=== PATIENT | female | born 1975 | race Caucasian/White ===

== ENCOUNTER 2019-10-12 08:12 | Emergency (ER) | payer OTHER, MEDICAID, SELFPAY ==
[2019-10-12 08:15] VITALS: BP 1156/87; PULSE 68; RESP 24; TEMP 36.6; O2SAT 100
[2019-10-12] MEDS: MORPHINE 4 MG/ML INJ IM (08:20)
--- NOTE | 2019-10-12 08:21 | DI.CT.S_ITS ---
PROCEDURE: CT ABDOMEN PELVIS WO CON INDICATIONS: flank pain, stone study TECHNIQUE: Noncontrast 5 mm thick sections acquired from the diaphragms to the symphysis. 5 mm thick coronal and sagittal reformats were then performed. For radiation dose reduction, the following was used: automated exposure control, adjustment of mA and/or kV according to patient size. COMPARISON: [facility], CT, KIDNEY/ URETER/BLADDER, 08/19/2015, 10:04. FINDINGS: Image quality: Excellent. Lung bases: Lung bases are clear. Heart size is normal. Urinary system: Both kidneys are normal in size. No kidney stones or on the left but there is a punctate 1-2 mm calculus within the upper third collecting system of the right kidney, nonobstructive. No right-sided hydronephrosis or perinephric fat stranding but there is mild hydronephrosis and slight perinephric edema on the left. The right ureter appears non-dilated throughout its expected course of, but there is a mild degree of left ureteral dilatation almost to the bladder level where a 1 x 2 mm calculus can be seen within the far distal left ureter, seen on series 2 image 80.. Bladder wall thickness is normal; no calcified bladder stones. Other solid organs: Liver is normal in size. Gallbladder has been previously resected. Pancreas is normal in contours. Spleen is normal in size. No adrenal nodules. Peritoneum and bowel: Unenhanced bowel loops demonstrate normal wall thickness and caliber. No free fluid or air. Nodes and vessels: No retroperitoneal or mesenteric adenopathy by size criteria. Aorta and inferior vena cava are normal in caliber. Abdominal wall: No ventral hernias. Pelvis: No free pelvic fluid. No inguinal hernias or adenopathy. Centrally positioned IUD. Bones: No suspicious bony lesions. No vertebral body compression fractures. IMPRESSION: 2 mm maximal dimension far distal left ureteral stone causing mild hydronephrosis and hydroureter on the left. Punctate nonobstructive 1-2 mm calculus is noted within the upper third collecting system of the right kidney. IUD in normal position, prior cholecystectomy. Dictated by: Jeremias Puentes M.D. on 10/12/2019 at 9:42 Approved by: Jeremias Puentes M.D. on 10/12/2019 at 9:46
--- NOTE | 2019-10-12 08:27 | ED.ABDPAIN ---
HPI - Abdominal Pain General Chief Complaint: Urogenital-Female Stated Complaint: unknown Time Seen by Provider: 10/12/19 08:19 History of Present Illness HPI narrative: cc: severe left flank pain. H/O kidney stones HPI: The patient is a 44-year-old female at the present time is very hysterical and uncooperative thrashing about complaining of severe pain in her left lower flank radiating straight through to her back. The patient has difficult time providing history. The patient's son provided most of the information. The patient woke up around 7:00 a.m. was complaining of abdominal pain which became progressively worse localizing to the left side with severe pain 10/10. She started retching and gagging. Her son states that she is a diabetic but does not know whether not she has hypertension. She is a former smoker periodically drinks alcohol and periodically uses marijuana. Related Data Previous Rx's Medication Instructions Recorded ondansetron 4 mg PO Q6H PRN #12 tab 10/12/19 oxycodone-acetaminophen [Percocet] 1 tab PO Q6H PRN #12 tab 10/12/19 tamsulosin 0.4 mg PO DAILY #7 cap 10/12/19 Allergies Allergy/AdvReac Type Severity Reaction Status Date / Time No Known Drug Allergies Allergy Verified 10/12/19 08:47 Review of Systems Review of Systems Narrative: REVIEW OF SYSTEMS: CONSTITUTIONAL: No fever but has had chills and sweats. NEUROLOGICAL: Denies any headache EENT: Has had no sore throat or difficulty in swallowing. CARDIO-PULMONARY: Denies any chest pain cough or shortness of breath GASTROINTESTINAL: Severe left lower abdominal pain and flank pain radiating to her back with intense retching and vomiting. GENITAL URINARY: No dysuria MUSCULOSKELETAL/ RHEUMATOLOGICAL: Left posterior back pain and flank pain. c/o of severe pain in the left posterior flank. This is identical to my previous kidney stones Patient History Social History Smoking Status: Never smoker Exam Narrative Exam Narrative: PHYSICAL EXAM: CONSTITUTIONAL: Awake,Hysterical, yelling and screaming acutely anxious, agitated writhing and retching continuously. The patient is extremely uncomfortable. She is shaking making the exam difficult and is uncooperative. HEAD: AT/NC EENT: PERRL, FROM of eyes, no discharge, no nystagmus MOUTH:Oral mucosa is moist and pink, NECK: Supple, no obvious JVD, Trachea is midline without stridor, no palpable LN. THORAX: No deformity, retractions, chest wall tenderness. Mildly tender left CVA tenderness. LUNGS: Clear, symmetrical breath sounds without respiratory distress. HEART: Normal heart tones, regular rhythm tachycardic without murmur. ABDOMEN: Soft, non-tender, normal bowel sounds without guarding, rebound, rigidity or palpable mass. EXTREMITIES: No edema, deformity, tenderness or cyanosis. SKIN: No rash, bruising, petechiae or purpura. Blotchy brawny discoloration of her face NEURO: Awake, agitated, cranial nerves II-XII are symmetrical , moves all 4 extremities . Initial Vital Signs Initial Vital Signs: Vital Signs Temperature 97.9 F 10/12/19 08:15 Pulse Rate 68 10/12/19 08:15 Respiratory Rate 24 10/12/19 08:15 Blood Pressure 1156/87 H 10/12/19 08:15 Pulse Oximetry 100 10/12/19 08:15 Course Course Course Narrative: 1039: CT scan of the patient's abdomen reveals a 2 mm maximal dimension far distal left ureteral stone causing mild hydronephrosis and hydroureter on the left. Punctate nonobstructing 1-2 mm calculus is noted within the upper 3rd collecting system of the right kidney. IUD in normal position prior cholecystectomy. Orders Ordered: Discontinued Medications Diphenhydramine HCl (Benadryl) 50 mg IV NOW ONE Stop: 10/12/19 08:28 Last Admin: 10/12/19 08:40 Dose: 50 mg Documented by: ALEIDA Sodium Chloride (Normal Saline 0.9%) 1,000 mls @ 1,000 mls/hr IV BOLUS ONE Stop: 10/12/19 09:28 Last Infusion: 10/12/19 11:54 Dose: 0 mls/hr Documented by: Admin: 10/12/19 08:49 Dose: 500 mls/hr Documented by: ALEIDA Ketorolac Tromethamine (Toradol) 30 mg IV NOW ONE Stop: 10/12/19 08:30 Last Admin: 10/12/19 08:40 Dose: 30 mg Documented by: ALEIDA Morphine Sulfate (Morphine) 4 mg IV NOW ONE Stop: 10/12/19 08:20 Last Admin: 10/12/19 08:44 Dose: 4 mg Documented by: ALEIDA Morphine Sulfate (Morphine) 4 mg IM NOW ONE Stop: 10/12/19 08:30 Last Admin: 10/12/19 08:20 Dose: 4 mg Documented by: ALEIDA Morphine Sulfate (Morphine) 2 mg IV NOW ONE Stop: 10/12/19 08:59 Last Admin: 10/12/19 09:06 Dose: 2 mg Documented by: ALEIDA Morphine Sulfate (Morphine) 4 mg IV NOW ONE Stop: 10/12/19 10:38 Last Admin: 10/12/19 10:48 Dose: 4 mg Documented by: ALEIDA Ondansetron HCl (Zofran) 4 mg IV NOW ONE Stop: 10/12/19 08:20 Last Admin: 10/12/19 08:39 Dose: 4 mg Documented by: ALEIDA Tamsulosin HCl (Flomax) 0.4 mg PO NOW ONE Stop: 10/12/19 10:41 Last Admin: 10/12/19 10:49 Dose: 0.4 mg Documented by: ALEIDA Vital Signs Vital signs: Vital Signs - 8 hr 10/12/19 08:15 10/12/19 10:10 Temperature 97.9 F Pulse Rate 68 67 Respiratory Rate 24 19 Blood Pressure 1156/87 H Blood Pressure [Right Arm] 157/84 H Pulse Oximetry 100 100 MDM - Abdominal Pain Lab Data Result diagrams: 10/12/19 08:35 10/12/19 08:35 Labs: Lab Results 10/12/19 10/12/19 10/12/19 Range/Units 08:35 08:35 10:00 WBC 7.3 (4.5-11.0) X10^3/uL RBC 4.18 (4.0-5.2) X10^6/uL Hgb 13.7 (12.0-16.0) g/dL Hct 39.1 (36-46) % MCV 93.7 (80-100) fL MCH 32.8 (26-34) PG MCHC 35.0 (30-36) % RDW 14.7 (11.6-14.8) % Plt Count 283 (150-400) X10^3/uL Neut % (Auto) 55.2 (50-75) % Lymph % (Auto) 33.0 (25-40) % [place] % (Auto) 8.5 (3-14) % Eos % (Auto) 2.2 (2-4) % Baso % (Auto) 1.1 (0-2) % Neut # (Auto) 4000 (3445-8801) /uL Lymph # (Auto) 2400 (8821-0416) /uL [place] # (Auto) 600 (0-900) /uL Eos # (Auto) 200 (0-450) /uL Baso # (Auto) 100 (0-100) /uL Sodium 141 (137-145) mmol/L Potassium 3.6 (3.4-5.1) mmol/L Chloride 110 H (98-107) mmol/L Carbon Dioxide 22 (22-32) mmol/L BUN 15 (7-17) mg/dL Creatinine 0.68 (0.52-1.04) mg/dL Estimated GFR > 60.0 (>60) mL/min BUN/Creatinine Ratio 22.1 H (6-22) Glucose 176 H (70-100) mg/dL Lactate 1.9 (0.7-2.1) mmol/L Calcium 8.9 (8.4-10.2) mg/dL Total Bilirubin 0.3 (0.2-1.3) mg/dL AST 29 (14-36) IU/L ALT 23 (<35) IU/L Alkaline Phosphatase 98 (38-126) U/L Total Protein 7.5 (6.3-8.2) g/dL Albumin 4.4 (3.5-5.0) g/dL Globulin 3.1 (1.7-4.1) g/dL Albumin/Globulin Ratio 1.4 (1.0-2.8) Lipase 146 (23-300) U/L Discharge Plan Departure Patient Disposition: Home Clinical Impression: Acute left flank pain, Ureterolithiasis, Colic, ureteral Discharge Date/Time: 10/12/19 12:58 Instructions: DI for Kidney Stones Activity Restrictions/Additional Instructions: 1. You have a very small 2 mm kidney stone in your right left ureter. There is no significant obstruction of the ureter and you have minimal swelling of the ureter. 2. You need to follow-up with your primary care physician. 3. You can follow up with the urologist here in [place]. Dr. Fitzpatrick 4. Take the Zofran for nausea and vomiting 4 mg, 1-2 tablets every 6 hours as needed 5. Take the Percocet 10/325 every 6 hours as needed for severe pain and discomfort. 6. Take the Flomax 1 tablet every day for the next 7 days. 7. Return to the emergency department if you develop worsening pain that is uncontrolled by the medication fever, uncontrolled vomiting, or you pass out. Prescriptions: New ondansetron 4 mg tablet,disintegrating 4 mg PO Q6H PRN (Reason: nausea and vomiting) Qty: 12 RF: 0 tamsulosin 0.4 mg capsule 0.4 mg PO DAILY Qty: 7 RF: 0 oxycodone-acetaminophen [Percocet] 10-325 mg tablet 1 tab PO Q6H PRN (Reason: pain) Qty: 12 RF: 0 Referrals: Michelle Hinojosa MD [Primary Care Provider] -
[2019-10-12] MEDS: ONDANSETRON 4 MG/2 ML INJ IV (08:39)
[2019-10-12] MEDS: diphenhydrAMINE 50 MG/ML VIAL IV (08:40)
[2019-10-12] MEDS: KETOROLAC 60 MG/2 ML VIAL 30 MG IV (08:40)
[2019-10-12] MEDS: MORPHINE 4 MG/ML INJ IV ×2 (08:44→10:48)
[2019-10-12] MEDS: SODIUM CHLORIDE 0.9% 1,000 ML 500 ML IV (08:49)
[2019-10-12 08:55] LABS: Add Manual Diff / Slide Review NO; Basophils Absolute Auto 100 /uL (0-100); Basophils Percent Auto 1.1 % (0-2); Eosinophils Absolute Auto 200 /uL (0-450); Eosinophils Percent Auto 2.2 % (2-4); Hematocrit 39.1 % (36-46); Hemoglobin 13.7 g/dL (12.0-16.0); Lymphocytes Absolute Auto 2400 /uL (1100-4500); Mean Corpuscular Hemoglobin 32.8 PG (26-34); Mean Corpuscular Volume 93.7 fL (80-100); Monocytes Absolute Auto 600 /uL (0-900); Monocytes Percent Auto 8.5 % (3-14); Neutrophils Absolute Auto 4000 /uL (1500-7000); Neutrophils Percent Auto 55.2 % (50-75); Platelet Count 283 X10^3/uL (150-400); Red Blood Cell Count 4.18 X10^6/uL (4.0-5.2); Red Cell Distribution Width 14.7 % (11.6-14.8); White Blood Cell Count 7.3 X10^3/uL (4.5-11.0)
[2019-10-12 09:03] LABS: Alanine Aminotransferase 23 IU/L (<35); Albumin 4.4 g/dL (3.5-5.0); Albumin Globulin Ratio 1.4 (1.0-2.8); Alkaline Phosphatase 98 U/L (38-126); Aspartate Aminotransferase 29 IU/L (14-36); BUN Creatinine Ratio 22.1 (6-22); Bilirubin Total 0.3 mg/dL (0.2-1.3); Blood Urea Nitrogen 15 mg/dL (7-17); Calcium 8.9 mg/dL (8.4-10.2); Carbon Dioxide 22 mmol/L (22-32); Chloride 110 mmol/L (98-107); Estimated Glomerular Filt Rate > 60.0 mL/min (>60); Globulin 3.1 g/dL (1.7-4.1); Glucose 176 mg/dL (70-100); HEMOLYSIS < 15 (0-50); Lipase 146 U/L (23-300); Potassium 3.6 mmol/L (3.4-5.1); Sodium 141 mmol/L (137-145); Total Protein 7.5 g/dL (6.3-8.2)
[2019-10-12] MEDS: MORPHINE 2 MG/ML INJ IV (09:06)
--- NOTE | 2019-10-12 09:09 | PC.NURSE ---
pt arrived screaming in pain to ER. left flank. Morphine given IM, difficult iv start. Dr. Tovar at bedside.
[2019-10-12 10:10] VITALS: BP 157/84; PULSE 67; RESP 19; O2SAT 100
[2019-10-12 10:23] LABS: Lactate (Lactic Acid) 1.9 mmol/L (0.7-2.1)
[2019-10-12] MEDS: TAMSULOSIN 0.4 MG CAPSULE PO (10:49)
[2019-10-12 12:08] VITALS: BP 144/86; PULSE 76; RESP 16; O2SAT 99
--- NOTE | 2019-10-12 12:52 | PC.NURSE ---
pt was unable to obtain a urine sample prior to discharge.
[2019-10-12 12:54] VITALS: BP 174/79; PULSE 83; RESP 16; O2SAT 99
== END 2019-10-12 12:58 | disposition home or self-care (01) ==
PROVIDERS: Emergency Provider Emergency Medicine; Family Provider Internal Medicine; PCP Internal Medicine
DX: N20.1 Calculus of ureter (principal); N23 Unspecified renal colic; Z87.442 Personal history of urinary calculi; E11.9 Type 2 diabetes mellitus without complications
CPT/HCPCS: 36415; 74176; 80053; 83605; 83690; 85025; 96361; 96372; 96374; 96375; 96376; 99284; J1200; J1885; J2270; J2405

== ENCOUNTER → 2020-05-20 11:38 | Outpatient (CLI) | payer OTHER, MEDICAID, SELFPAY ==
--- NOTE | 2020-05-20 | DI.CT.S_ITS ---
PROCEDURE: CT ABDOMEN PELVIS WO/W CON INDICATIONS: Gross hematuria TECHNIQUE: Optional 5 mm thick noncontrast images acquired from the diaphragm to the symphysis pubis. After the administration of intravenous contrast, 5 mm thick images acquired from the diaphragm to the symphysis pubis after a 10-minute delay. 2 mm thick coronal and sagittal reformats were then performed of the kidneys and ureters. For radiation dose reduction, the following was used: automated exposure control, adjustment of mA and/or kV according to patient size. COMPARISON: None. FINDINGS: Image quality: Excellent. Lung bases: Lung bases are clear. Heart size is normal. Urinary system: Both kidneys are normal in size, without hydronephrosis or nephrolithiasis on pre-contrast images. No perinephric fat stranding. There is mildly asymmetric bilateral renal enhancement, normal on the left and with mild delayed nephrogram on the right. Renal calyces appear normal in morphology when filled with contrast on the left but there is moderate hydronephrosis and hydroureter on the right. Opacified portions of both ureters demonstrate asymmetric caliber, dilated on the right to the level of a impacted 4 by 5 mm distal ureteral stone near the adnexal level at the right hemipelvis. Bladder wall thickness is normal. No calcified bladder stones. Other solid organs: Liver is normal in size and enhancement. Gallbladder has been previously resected. Biliary system is non dilated. Pancreas enhances normally. Spleen is normal in size and enhancement. No adrenal nodules. Peritoneum and bowel: Bowel loops demonstrate normal wall thickness and caliber. No free fluid or air. Nodes and vessels: No retroperitoneal or mesenteric adenopathy by size criteria. Aorta and inferior vena cava are normal in size. Abdominal wall: No ventral hernias. Pelvis: No pathologic free pelvic fluid. No inguinal hernias or adenopathy. Bones: No suspicious bony lesions. No vertebral body compression fractures. IMPRESSION: Prior cholecystectomy. Impacted distal right ureteral calculus measuring approximately 4 by 5 mm in diameter at the right adnexa axial level, producing hydronephrosis and hydroureter above that level, and producing a mild delayed nephrogram appearance at the right kidney when compared to the normal appearing excretion phase of contrast enhancement on the left. Centrally positioned IUD incidentally noted. No bladder abnormality seen. No suspicion for coincidental urothelial or renal cortical neoplasm. Dictated by: Jeremias Puentes M.D. on 05/20/2020 at 13:45 Approved by: Jeremias Puentes M.D. on 05/20/2020 at 13:50
== END ==
PROVIDERS: Family Provider Internal Medicine; PCP Internal Medicine; Referring Provider Urology; Visit Provider Urology
DX: R31.0 Gross hematuria (principal); N13.2 Hydronephrosis with renal and ureteral calculous obstruction; Z90.49 Acquired absence of other specified parts of digestive tract; Z97.5 Presence of (intrauterine) contraceptive device
CPT/HCPCS: 74178; Q9967

== ENCOUNTER 2020-06-08 03:06 | Emergency (ER) | payer OTHER, MEDICAID, SELFPAY ==
[2020-06-08 03:15] VITALS: BP 173/83; PULSE 86; RESP 17; TEMP 37.5; O2SAT 97; BMI 34.7
--- NOTE | 2020-06-08 03:26 | ED_ITS ---
HPI - Abdominal Pain General Chief Complaint: Urogenital-Female Stated Complaint: extreme pain with urinating; surgery yesterday Time Seen by Provider: 06/08/20 03:10 Source: patient and family Mode of arrival: Family Vehicle History of Present Illness HPI narrative: Patient here complains of right flank pain and dysuria with hematuria. Patient status post lithotripsy with right ureteral stent yesterday afternoon at 2:00 p.m. and [facility]. Dr. Arzola Never had ureteral stents in the past. Hurts primarily with urination. complaint: flank pain Location: R flank Related Data Previous Rx's Medication Instructions Recorded ondansetron 4 mg PO Q6H PRN #12 tab 10/12/19 oxycodone-acetaminophen [Percocet] 1 tab PO Q6H PRN #12 tab 10/12/19 tamsulosin 0.4 mg PO DAILY #7 cap 10/12/19 ondansetron 4 mg PO Q8H PRN #10 tab 06/08/20 phenazopyridine [Pyridium] 100 mg PO TID PRN #6 tab 06/08/20 sulfamethoxazole-trimethoprim 1 tab PO BID #14 tab 06/08/20 Allergies Allergy/AdvReac Type Severity Reaction Status Date / Time No Known Drug Allergies Allergy Verified 10/12/19 08:47 Review of Systems Review of Systems Narrative: GENERAL: Denies chills, fatigue, malaise, fever, sweats. HEENT: Denies sinus pain, ear pain, sore throat, difficulty swallowing RESPIRATORY: Denies dyspnea, cough CARDIOVASCULAR: Denies chest pain, palpitations, edema, GASTROINTESTINAL: Denies nausea, vomiting, complains of abdominal pain, denies diarrhea, constipation, melena. : Complains of dysuria, frequency, hematuria MUSCULOSKELETAL: denies muscle or bony pain SKIN: Denies rash, skin lesions NEUROLOGIC: Denies weakness, headache, numbness, change in speech, confusion PSYCHIATRIC: No SI or HI or hallucinations ROS Unobtainable: All systems reviewed & are unremarkable except as noted in HPI and below Patient History Social History Smoking Status: Never smoker Smoking Status: Never smoker alcohol intake frequency: 0-2 drinks per day Substance Use Type: marijuana Exam Narrative Exam Narrative: GENERAL: patient appears stated age. Well-nourished, well- developed patient, in no distress when not urinating, not toxic not dyspneic HEAD: Normocephalic. EYES: Pupils equal round and reactive. No scleral icterus. No injection no discharge CARDIOVASCULAR: Regular rate and rhythm without murmurs, gallops, or rubs. RESPIRATORY: Clear to auscultation. Breath sounds equal bilaterally. No wheezes, rales, or rhonchi. GASTROINTESTINAL: Abdomen soft, , mild right lower quadrant tenderness and right flank tenderness BACK: Nontender without deformity or crepitance. No flank tenderness. NEURO: AOx4. SKIN: Warm and dry PSYCH: Not anxious, is cooperative Initial Vital Signs Initial Vital Signs: Vital Signs Temperature 99.5 F 06/08/20 03:15 Pulse Rate 86 06/08/20 03:15 Respiratory Rate 17 06/08/20 03:15 Blood Pressure 173/83 H 06/08/20 03:15 Pulse Oximetry 97 06/08/20 03:15 Course Course Course Narrative: No new complaints during course of stay. Pain has been controlled. Patient did urinate again here just prior to departure without discomfort. Orders Ordered: ED Orders 06/08/20 03:33 Urine Culture Stat Urine Microscopic Stat 06/08/20 03:35 Complete Blood Count AUTO DIFF Stat Comprehensive Metabolic Panel Stat 06/08/20 03:41 CT kidney ureter bladder (KUB) Stat Discontinued Medications Hydromorphone HCl (Hydromorphone 1 Mg Inj) 1 mg IV NOW ONE Stop: 06/08/20 03:26 Last Admin: 06/08/20 03:38 Dose: 1 mg Documented by: Ketorolac Tromethamine (Ketorolac 60 Mg/2 Ml Vial) 15 mg IV NOW ONE Stop: 06/08/20 05:03 Last Admin: 06/08/20 05:26 Dose: 15 mg Documented by: Ondansetron HCl (Ondansetron 4 Mg/2 Ml Inj) 4 mg IV NOW ONE Stop: 06/08/20 03:26 Last Admin: 06/08/20 03:38 Dose: 4 mg Documented by: Phenazopyridine HCl (Phenazopyridine 100 Mg Tablet) 100 mg PO NOW ONE Stop: 06/08/20 05:03 Last Admin: 06/08/20 05:26 Dose: 100 mg Documented by: Trimethoprim/Sulfamethoxazole (Trimeth/Sulfa 160/800 (Ds) Tablet) 1 tab PO NOW ONE Stop: 06/08/20 05:19 Last Admin: 06/08/20 05:26 Dose: 1 tab Documented by: Reevaluation(s) Reevaluation #1: Reviewed with patient results and discussion with neurologist. Will try Pyridium and 1 dose of Toradol here. Discharge home with prescription for Pyridium. Patient desires trying new medications at home that has been prescribed. Patient still has Percocet at home as well. Time: 05:37 Consultations Consultation #1: Spoke with urologist on-call for patient's provider. Spoke with Dr. Gamez, unable to remove stent on the weekend. Suggest trying pyridium and a dose of Toradol here. Time: 05:05 Vital Signs Vital signs: Vital Signs - 8 hr 06/08/20 03:15 06/08/20 05:45 Temperature 99.5 F Pulse Rate 86 65 Respiratory Rate 17 16 Blood Pressure 173/83 H 140/79 Pulse Oximetry 97 97 MDM - Abdominal Pain Differential Diagnosis Differential diagnosis: Likely calculus of kidney, constipation and small bowel obstruction Medical Records Attestation: I reviewed the patient's medical records. Medical records narrative: Medical records from [facility] faxed Lab Data Attestation: I reviewed the patient's lab results. Result diagrams: 06/08/20 03:35 06/08/20 03:35 Labs: Lab Results 06/08/20 06/08/20 06/08/20 Range/Units 03:33 03:35 03:35 WBC 14.0 H (4.5-11.0) X10^3/uL RBC 4.61 (4.0-5.2) X10^6/uL Hgb 14.7 (12.0-16.0) g/dL Hct 43.0 (36-46) % MCV 93.1 (80-100) fL MCH 31.8 (26-34) PG MCHC 34.1 (30-36) % RDW 13.9 (11.6-14.8) % Plt Count 280 (150-400) X10^3/uL Neut % (Auto) 83.7 H (50-75) % Lymph % (Auto) 11.1 L (25-40) % [place] % (Auto) 4.9 (3-14) % Eos % (Auto) 0.0 L (2-4) % Baso % (Auto) 0.3 (0-2) % Neut # (Auto) 18645 H (4175-3203) /uL Lymph # (Auto) 1600 (0869-2142) /uL [place] # (Auto) 700 (0-900) /uL Eos # (Auto) 0 (0-450) /uL Baso # (Auto) 0 (0-100) /uL Sodium 138 (137-145) mmol/L Potassium 3.9 (3.4-5.1) mmol/L Chloride 103 (98-107) mmol/L Carbon Dioxide 22 (22-32) mmol/L BUN 15 (7-17) mg/dL Creatinine 0.68 (0.52-1.04) mg/dL Estimated GFR > 60.0 (>60) mL/min BUN/Creatinine Ratio 22.1 H (6-22) Glucose 282 H (70-100) mg/dL Calcium 9.5 (8.4-10.2) mg/dL Total Bilirubin 0.8 (0.2-1.3) mg/dL AST 206 H (14-36) IU/L ALT 168 H (<35) IU/L Alkaline Phosphatase 135 H (38-126) U/L Total Protein 8.3 H (6.3-8.2) g/dL Albumin 4.9 (3.5-5.0) g/dL Globulin 3.4 (1.7-4.1) g/dL Albumin/Globulin Ratio 1.4 (1.0-2.8) Urine RBC 30-100/hpf H (0-5/HPF) Urine WBC 0-1/hpf (0-5/HPF) Ur Squamous Epith Cells 1-5 /hpf (0-5/HPF) Urine Bacteria Many (>30) H (None) Ur Culture Indicated? Specimen cultured Point of care testing: Urine Dip Bedside Urine Glucose 1000 mg/dl Bedside Urine Bilirubin - Negative Bedside Urine Ketone +/- 5 Urine Specific [place] 1.030 Bedside Urine Occult Blood +++ Bedside Urine pH 6 Bedside Urine Protein ++ 100 Bedside Urine Urobilinogen - Negative Bedside Urine Nitrite - Negative Bedside Urine Leukocytes + [address] scan - abdomen/pelvis: Radiologist's Impression: Interval placement of right ureteral stent and retrieval of obstructing renal stone with resolution of hydronephrosis. Hepatic steatosis. Stable IUD which may be low laying MDM Narrative Medical decision making narrative: Appropriate for discharge home. Pain is con trolled. Will try adding medications as suggested by urologist. Will add antibiotics as may be early UTI with symptoms of dysuria Discharge Plan Departure Patient Disposition: Home Clinical Impression: Acute flank pain Instructions: DI for Ureteral Stent Placement Activity Restrictions/Additional Instructions: Return if worsening or if any concerns or questions. No driving or operating machinery. See your urologist next week for recheck. Prescriptions have been sent here [facility] in [place]. Prescriptions: New phenazopyridine [Pyridium] 100 mg tablet 100 mg PO TID PRN (Reason: pain) Qty: 6 RF: 0 ondansetron 4 mg tablet,disintegrating 4 mg PO Q8H PRN (Reason: nausea and vomiting) Qty: 10 RF: 0 sulfamethoxazole-trimethoprim 800-160 mg tablet 1 tab PO BID Qty: 14 RF: 0 No Action ondansetron 4 mg tablet,disintegrating 4 mg PO Q6H PRN (Reason: nausea and vomiting) Qty: 12 RF: 0 tamsulosin 0.4 mg capsule 0.4 mg PO DAILY Qty: 7 RF: 0 oxycodone-acetaminophen [Percocet] 10-325 mg tablet 1 tab PO Q6H PRN (Reason: pain) Qty: 12 RF: 0 Referrals: Michelle Hinojosa MD [Primary Care Provider] -
[2020-06-08] MEDS: HYDROMORPHONE 1 MG INJ IV (03:38)
[2020-06-08] MEDS: ONDANSETRON 4 MG/2 ML INJ IV (03:38)
--- NOTE | 2020-06-08 03:41 | DI.CT.S_ITS ---
PROCEDURE: CT KIDNEY URETER BLADDER (KUB) INDICATIONS: flank pain/postop stent TECHNIQUE: Noncontrast 5 mm thick sections acquired from the diaphragms to the symphysis. 5 mm thick coronal and sagittal reformats were then performed. For radiation dose reduction, the following was used: automated exposure control, adjustment of mA and/or kV according to patient size. COMPARISON: [facility], CR, XR RETROGRADE UROGRAPHY, 06/07/2020, 12:22. [facility], CT, KIDNEY/ URETER/BLADDER, 08/19/2015, 10:04. FINDINGS: Image quality: Excellent. Lung bases: Basilar atelectasis. Lung bases are otherwise clear. Heart size is normal. Small hiatal hernia Urinary system: Unremarkable non-contrast appearance of the kidneys. There is a nephroureteral stent which is coiled within the right renal pelvis and within the decompressed bladder. No hydronephrosis. Inflammation is noted adjacent to the right ureter throughout its course. No renal tract calcifications are definitely identified on today's exam. Other solid organs: Liver is diffusely decreased in attenuation with regions of spurring most prominent within the posterior aspect of the right hepatic lobe. Gallbladder is surgically absent prominence of the extrahepatic bile ducts, likely within normal limits given surgical status.. Pancreas is normal in contours. Spleen is normal in size. No adrenal nodules. Peritoneum and bowel: Unenhanced bowel loops demonstrate normal wall thickness and caliber. No free fluid or air. Nodes and vessels: No retroperitoneal or mesenteric adenopathy by size criteria. Aorta and inferior vena cava are normal in caliber. Abdominal wall: No ventral hernias. Pelvis: No free pelvic fluid. No inguinal hernias or adenopathy. Stable appearance of IUD which may be low lying. 2.0 centimeter left adnexal cyst. Bones: No suspicious bony lesions. No vertebral body compression fractures. IMPRESSION: Interval placement of right nephroureteral stent with retrieval of previously noted ureteral stone. No remaining urinary tract calcifications. No hydronephrosis. Inflammation adjacent to the right ureter is an expected finding given recent procedure. Hepatic steatosis. Stable appearance of IUD which may be low lying. Agree with preliminary report. Dictated by: Juliocesar Adkins D.O. on 06/08/2020 at 7:46 Approved by: Juliocesar Adkins D.O. on 06/08/2020 at 7:55
[2020-06-08 03:48] LABS: Add Manual Diff / Slide Review NO; Basophils Absolute Auto 0 /uL (0-100); Basophils Percent Auto 0.3 % (0-2); Eosinophils Absolute Auto 0 /uL (0-450); Hemoglobin 14.7 g/dL (12.0-16.0); Lymphocytes Absolute Auto 1600 /uL (1100-4500); Lymphocytes Percent Auto 11.1 % (25-40); Mean Corpuscular HGB Conc 34.1 % (30-36); Mean Corpuscular Hemoglobin 31.8 PG (26-34); Mean Corpuscular Volume 93.1 fL (80-100); Monocytes Absolute Auto 700 /uL (0-900); Monocytes Percent Auto 4.9 % (3-14); Neutrophils Absolute Auto 11700 /uL (1500-7000); Neutrophils Percent Auto 83.7 % (50-75); Platelet Count 280 X10^3/uL (150-400); Red Blood Cell Count 4.61 X10^6/uL (4.0-5.2); Red Cell Distribution Width 13.9 % (11.6-14.8)
[2020-06-08 03:49] LABS: RBC Urine 30-100/HPF (0-5/HPF); WBC Urine 0-1/HPF (0-5/HPF)
[2020-06-08 03:52] LABS: Bacteria Urine Many (>30)
[2020-06-08 03:53] LABS: Culture Indicated Urine Specimen Cultured
[2020-06-08 03:54] LABS: Squamous Epithelial Cell Urine 1-5 /HPF (0-5/HPF)
[2020-06-08 03:55] LABS: Albumin 4.9 g/dL (3.5-5.0); Albumin Globulin Ratio 1.4 (1.0-2.8); Alkaline Phosphatase 135 U/L (38-126); Aspartate Aminotransferase 206 IU/L (14-36); BUN Creatinine Ratio 22.1 (6-22); Bilirubin Total 0.8 mg/dL (0.2-1.3); Blood Urea Nitrogen 15 mg/dL (7-17); Calcium 9.5 mg/dL (8.4-10.2); Carbon Dioxide 22 mmol/L (22-32); Chloride 103 mmol/L (98-107); Estimated Glomerular Filt Rate > 60.0 mL/min (>60); Globulin 3.4 g/dL (1.7-4.1); Glucose 282 mg/dL (70-100); HEMOLYSIS < 15 (0-50); Potassium 3.9 mmol/L (3.4-5.1); Sodium 138 mmol/L (137-145); Total Protein 8.3 g/dL (6.3-8.2)
[2020-06-08 04:01] LABS: Alanine Aminotransferase 168 IU/L (<35)
[2020-06-08] MEDS: KETOROLAC 60 MG/2 ML VIAL 15 MG IV (05:26)
[2020-06-08] MEDS: PHENAZOPYRIDINE 100 MG TABLET PO (05:26)
[2020-06-08] MEDS: TRIMETH/SULFA 160/800 (DS) TABLET 1 TAB PO (05:26)
[2020-06-08 05:45] VITALS: BP 140/79; PULSE 65; RESP 16; O2SAT 97
== END 2020-06-08 06:07 | disposition home or self-care (01) ==
PROVIDERS: Emergency Provider Emergency Medicine; Family Provider Internal Medicine; PCP Internal Medicine
DX: R10.9 Unspecified abdominal pain (principal); R31.9 Hematuria, unspecified; R30.0 Dysuria; Z96.0 Presence of urogenital implants
CPT/HCPCS: 36415; 74176; 80053; 81003; 81015; 85025; 87086; 96374; 96375; 99283; 99284; J1170; J1885; J2405

== ENCOUNTER → 2020-07-30 12:18 | Outpatient (CLI) | payer OTHER, MEDICAID, SELFPAY ==
--- NOTE | 2020-07-30 | DI.US.S_ITS ---
PROCEDURE: US RENAL COMPLETE INDICATIONS: KIDNEY STONE TECHNIQUE: Real-time scanning was performed of the kidneys and bladder, with image documentation. COMPARISON: [facility], CT, CT KIDNEY URETER BLADDER (KUB), 06/08/2020, 3:45. FINDINGS: Kidneys: Kidneys are normal in size. Right kidney measures 11.4 cm long; left kidney measures 12.2 cm long. Right renal cortical thickness is 1.9 cm; left renal cortical thickness is 1.9 cm. Renal cortical echotexture is normal. No hydronephrosis or nephrolithiasis. No suspicious solid mass lesions. Bladder: Pre-void bladder volume is 370 mL. Post-void residual is 109 mL. Pre-void images demonstrate no intraluminal masses or stones. On pre-void images, bilateral ureteral jets are noted with color Doppler interrogation. (Of note, ureteral jets may not be detectable in up to 25% of cases due to insufficient differences in specific gravity between ureteral and bladder urine). Miscellaneous: No free pelvic fluid. IMPRESSION: 1. Grossly normal appearance of the kidneys and no definitive stones are seen. 2. 109 cc postvoid residual. Dictated by: Hasmukh Briggs [facility] Interpreted: Johnathan Solorzano MD on 07/30/2020 at 16:34 Approved by: Johnathan Solorzano M.D. on 07/30/2020 at 17:06
== END ==
PROVIDERS: Family Provider Internal Medicine; PCP Internal Medicine; Referring Provider Urology; Visit Provider Urology
DX: N20.1 Calculus of ureter (principal)
CPT/HCPCS: 76770

== ENCOUNTER 2024-01-13 20:32 | Emergency (ER) | payer OTHER, MEDICAID, SELFPAY ==
[2024-01-13 20:35] VITALS: BP 146/78; PULSE 69; RESP 16; TEMP 36.9; O2SAT 98; BMI 28.3
--- NOTE | 2024-01-13 20:41 | DI.RAD.S_ITS ---
PROCEDURE: XR FINGER LT MIN 2V INDICATIONS: slammed under 25lb weight TECHNIQUE: AP hand, 2 views of the 4th finger(s) acquired. COMPARISON: None. FINDINGS: Bones: Mildly displaced 4th tuft fracture. Soft tissues: No suspicious soft tissue calcifications. IMPRESSION: Mildly displaced 4th tuft fracture. Dictated by: Kyle Aguiar M.D. on 01/13/2024 at 21:29 Approved by: Kyle Aguiar M.D. on 01/13/2024 at 21:30
--- NOTE | 2024-01-13 21:40 | ED.GENADULT ---
HPI - General Adult General Chief complaint: Extremity Injury, Upper Stated complaint: lt 4th finger injury Time Seen by Provider: 01/13/24 21:03 Source: patient Mode of arrival: Ambulatory History of Present Illness HPI narrative: Patient is a 48-year-old female here for evaluation of a injury to her left ring finger. She states that she smashed it while weightlifting with a 25 lb weight. Has bruising and swelling to the left ring finger. Related Data Previous Rx's Medication Instructions Recorded ondansetron 4 mg disintegrating 4 mg PO Q6H PRN nausea and 10/12/19 tablet vomiting #12 tabs oxycodone-acetaminophen 10 mg-325 1 tab PO Q6H PRN pain #12 tabs 10/12/19 mg tablet (Percocet) tamsulosin 0.4 mg capsule 0.4 mg PO DAILY #7 caps 10/12/19 ondansetron 4 mg disintegrating 4 mg PO Q8H PRN nausea and 06/08/20 tablet vomiting #10 tabs phenazopyridine 100 mg tablet 100 mg PO TID PRN pain 6 doses #6 06/08/20 (Pyridium) tabs sulfamethoxazole 800 1 tab PO BID #14 tabs 06/08/20 mg-trimethoprim 160 mg tablet Allergies Allergy/AdvReac Type Severity Reaction Status Date / Time No Known Drug Allergies Allergy Verified 01/13/24 20:40 Review of Systems Musculoskeletal Musculoskeletal: Reports system reviewed and no additional complaints, except as documented Integumentary/Breasts Skin/Breast: Reports system reviewed and no additional complaints, except as documented Neurologic Neurologic: Reports system reviewed and no additional complaints, except as documented Patient History Social History Smoking Status: Never smoker Smoking Status: Never smoker alcohol intake frequency: 0-2 drinks per day Substance Use Type: does not use Exam Initial Vital Signs Initial Vital Signs: Vital Signs Temperature 98.4 F 01/13/24 20:35 Pulse Rate 69 01/13/24 20:35 Respiratory Rate 16 01/13/24 20:35 Blood Pressure 146/78 H 01/13/24 20:35 Pulse Oximetry 98 01/13/24 20:35 Oxygen Delivery Method Room Air 01/13/24 20:35 Skin Other: Bruising to the left ring finger from the PIP joint distal. Neuro Sensory Exam: no sensory deficits noted Extrem Other: Swelling and bruising to the left ring finger. Procedures Orthopedic Splinting/Casting Injury #1: Side: left Upper Extremity Injury Location: finger Upper Extremity Immobilizer: aluminum form splint Post splinting neuro exam: no change Post splinting vascular exam: no change Placed by: Nursing Course Orders Ordered: ED Orders 01/13/24 20:41 XR finger LT min 2V Stat Vital Signs Vital signs: Vital Signs - 8 hr 01/13/24 20:35 01/13/24 21:54 Temperature 98.4 F Pulse Rate 69 62 Respiratory Rate 16 14 Blood Pressure 146/78 H 150/85 H Pulse Oximetry 98 99 Oxygen Delivery Method Room Air Room Air Medical Decision Making Imaging Data Extremity x-ray #1: Radiologist's Impression: PROCEDURE: XR FINGER LT MIN 2V INDICATIONS: slammed under 25lb weight TECHNIQUE: AP hand, 2 views of the 4th finger(s) acquired. COMPARISON: None. FINDINGS: Bones: Mildly displaced 4th tuft fracture. Soft tissues: No suspicious soft tissue calcifications. IMPRESSION: Mildly displaced 4th tuft fracture. MDM Narrative Medical decision making narrative: Patient does have bruising to the left ring finger. Has a tuft fracture. Does not appear to have a subungual hematoma. Patient was placed in an aluminum splint just to protect the finger. I discussed the injury with her. Discussed care instructions and return precautions. She expressed understanding and agreement with plan. Discharge Plan Departure Patient Disposition: Home Clinical Impression: Finger fracture, left Instructions: DI for Finger Fracture Activity Restrictions/Additional Instructions: You did fracture the tip of the ring finger. I do recommend that you use ice over the area. Tylenol and ibuprofen can be appropriate as well. The splint can be removed to wash your hands and to shower. The splint is more just to protect the tip of your finger while the fracture heals. Prescriptions: No Action ondansetron 4 mg tablet,disintegrating 4 mg PO Q6H PRN (Reason: nausea and vomiting) Qty: 12 0RF tamsulosin 0.4 mg capsule 0.4 mg PO DAILY Qty: 7 0RF oxycodone-acetaminophen [Percocet] 10-325 mg tablet 1 tab PO Q6H PRN (Reason: pain) Qty: 12 0RF phenazopyridine [Pyridium] 100 mg tablet 100 mg PO TID PRN (Reason: pain) Qty: 6 0RF ondansetron 4 mg tablet,disintegrating 4 mg PO Q8H PRN (Reason: nausea and vomiting) Qty: 10 0RF sulfamethoxazole-trimethoprim 800-160 mg tablet 1 tab PO BID Qty: 14 0RF Referrals: Nneka Hinojosa PA-C [Primary Care Provider] - Stand Alone Forms: Patient Portal/API
[2024-01-13 21:54] VITALS: BP 150/85; PULSE 62; RESP 14; O2SAT 99
== END 2024-01-13 21:56 | disposition home or self-care (01) ==
PROVIDERS: Emergency Provider Emergency Medicine; PCP Physician Assistant Medical
DX: S62.605A Fracture of unspecified phalanx of left ring finger, initial encounter for closed fracture (principal); W23.0XXA Caught, crushed, jammed, or pinched between moving objects, initial encounter
CPT/HCPCS: 73140; 99281; 99283

== ENCOUNTER 2024-03-14 15:35 | Emergency (ER) | payer OTHER, MEDICAID, SELFPAY ==
[2024-03-14] VITALS (10 sets, daily range): BP systolic 147–197; BP diastolic 71–93; PULSE 49–63; RESP 16–18; TEMP 36.3; O2SAT 94–100; BMI 28.0
[2024-03-14] MEDS: KETOROLAC 30 MG/ML VIAL 15 MG IV (16:27)
[2024-03-14] MEDS: ONDANSETRON 4 MG/2 ML INJ IV ×2 (16:27→20:16)
[2024-03-14 16:31] LABS: Add Manual Diff / Slide Review NO; Basophils Absolute Auto 100 /uL (0-100); Basophils Percent Auto 0.7 % (0-2); Eosinophils Absolute Auto 400 /uL (0-450); Eosinophils Percent Auto 4.5 % (2-4); Hematocrit 43.9 % (36-46); Hemoglobin 15.4 g/dL (12.0-16.0); Lymphocytes Absolute Auto 2100 /uL (1100-4500); Lymphocytes Percent Auto 26.4 % (25-40); Mean Corpuscular Volume 97.2 fL (80-100); Monocytes Absolute Auto 800 /uL (0-900); Monocytes Percent Auto 9.4 % (3-14); Neutrophils Absolute Auto 4800 /uL (1500-7000); Platelet Count 249 X10^3/uL (150-400); Red Blood Cell Count 4.52 X10^6/uL (4.0-5.2); Red Cell Distribution Width 13.9 % (11.6-14.8); White Blood Cell Count 8.1 X10^3/uL (4.5-11.0)
[2024-03-14 16:42] LABS: Alanine Aminotransferase 21 IU/L (<35); Albumin 4.4 g/dL (3.5-5.0); Albumin Globulin Ratio 1.6 (1.0-2.8); Alkaline Phosphatase 101 U/L (38-126); Aspartate Aminotransferase 23 IU/L (14-36); Bilirubin Total 0.5 mg/dL (0.2-1.3); Blood Urea Nitrogen 21 mg/dL (7-17); Calcium 9.2 mg/dL (8.4-10.2); Carbon Dioxide 26 mmol/L (22-32); Chloride 107 mmol/L (98-107); Estimated Glomerular Filt Rate > 60 mL/min (>60); Globulin 2.8 g/dL (1.7-4.1); Glucose 164 mg/dL (70-100); HEMOLYSIS < 15 (0-50); Lipase 143 U/L (23-300); Potassium 4.1 mmol/L (3.4-5.1); Sodium 140 mmol/L (137-145); Total Protein 7.2 g/dL (6.3-8.2)
[2024-03-14 16:50] LABS: Bacteria Urine Few (2-10); Culture Indicated Urine Specimen Cultured; Ictotest Urine Negative (Negative); RBC Urine >100/HPF (0-5/HPF); Squamous Epithelial Cell Urine 5-10 /HPF (0-5/HPF); Urine Volume 10mL (spun); WBC Urine 1-5/HPF (0-5/HPF)
--- NOTE | 2024-03-14 17:22 | PC.NURSE ---
RN checked on pt in waiting room. Pt reports feeling a little better after toradol and zofran
--- NOTE | 2024-03-14 19:20 | PC.NURSE ---
feels like previous kidney stones
--- NOTE | 2024-03-14 20:11 | ED_ITS ---
HPI - General Adult General Chief complaint: Urogenital-Female Stated complaint: lower back px, thinks kidney stones Time Seen by Provider: 03/14/24 18:13 Source: patient Mode of arrival: Ambulatory Limitations: no limitations History of Present Illness HPI narrative: Patient is a 48-year-old female. Prior history of kidney stones. States that she has needed procedures in the past in order to pass stones. Stated that about noon today she started to get discomfort in her right flank and right side of her abdomen that is consistent with prior history of stones. Is having some urinary frequency and hesitancy and dark-colored urine. Some nausea. No fevers. No change in bowel habits. Has not tried anything for symptoms prior to arrival. Related Data Previous Rx's Medication Instructions Recorded ondansetron 4 mg disintegrating 4 mg PO Q6H PRN nausea and 10/12/19 tablet vomiting #12 tabs oxycodone-acetaminophen 10 mg-325 1 tab PO Q6H PRN pain #12 tabs 10/12/19 mg tablet (Percocet) tamsulosin 0.4 mg capsule 0.4 mg PO DAILY #7 caps 10/12/19 ondansetron 4 mg disintegrating 4 mg PO Q8H PRN nausea and 06/08/20 tablet vomiting #10 tabs phenazopyridine 100 mg tablet 100 mg PO TID PRN pain 6 doses #6 06/08/20 (Pyridium) tabs sulfamethoxazole 800 1 tab PO BID #14 tabs 06/08/20 mg-trimethoprim 160 mg tablet hydrocodone 5 mg-acetaminophen 325 1 tab PO Q6H PRN pain #14 tabs 03/14/24 mg tablet ondansetron 4 mg disintegrating 4 mg PO Q6H PRN nausea and 03/14/24 tablet vomiting #14 tabs ondansetron 4 mg disintegrating 4 mg PO Q6H PRN nausea and 03/14/24 tablet vomiting #14 tabs tamsulosin 0.4 mg capsule (Flomax) 0.4 mg PO DAILY #14 caps 03/14/24 Allergies Allergy/AdvReac Type Severity Reaction Status Date / Time No Known Drug Allergies Allergy Verified 01/13/24 20:40 Review of Systems Review of Systems Narrative: See HPI Patient History Social History Smoking Status: Never smoker Smoking Status: Never smoker alcohol intake frequency: 0-2 drinks per day Substance Use Type: does not use Exam Initial Vital Signs Initial Vital Signs: Vital Signs Temperature 97.4 F L 03/14/24 16:09 Pulse Rate 54 L 03/14/24 16:09 Respiratory Rate 18 03/14/24 16:09 Blood Pressure 197/93 H 03/14/24 16:09 Pulse Oximetry 98 03/14/24 16:09 Oxygen Delivery Method Room Air 03/14/24 16:09 Const General: cooperative and No ill appearing HENGA Head: normal to inspection and normocephalic Resp Effort & Inspection: normal respiratory effort Cardio Rate: regular rate Skin General: no rashes or lesions noted Neuro General: patient alert, patient awake and moves all extremities Extrem General: normal to inspection Course Orders Ordered: ED Orders 03/14/24 20:11 CT kidney ureter bladder (KUB) Stat Discontinued Medications Hydrocodone Bitart/Acetaminophen (Hydrocodone/Acet 5/325 Prepack) 1 bottle MISC DIRECTED ONE Stop: 03/14/24 21:42 Last Admin: 03/14/24 21:43 Dose: 1 bottle Documented By: KT Hydrocodone Bitart/Acetaminophen (Hydrocodone/Acet 5/325 Tablet) 1 tab PO NOW ONE Stop: 03/14/24 21:53 Last Admin: 03/14/24 21:58 Dose: 1 tab Documented By: JUAN Hydromorphone HCl (Hydromorphone 1 Mg Inj) 1 mg IV NOW ONE Stop: 03/14/24 20:12 Last Admin: 03/14/24 20:15 Dose: 1 mg Documented By: KT Ketorolac Tromethamine (Ketorolac 30 Mg/Ml Vial) 15 mg IV NOW ONE Stop: 03/14/24 16:22 Last Admin: 03/14/24 16:27 Dose: 15 mg Documented By: LILI Ondansetron HCl (Ondansetron 4 Mg/2 Ml Inj) 4 mg IV NOW PRN PRN Reason: Nausea And Vomiting Last Admin: 03/14/24 16:27 Dose: 4 mg Documented By: LILI Ondansetron HCl (Ondansetron 4 Mg Odt) 4 mg PO NOW PRN PRN Reason: Nausea And Vomiting Ondansetron HCl (Ondansetron 4 Mg/2 Ml Inj) 4 mg IV NOW ONE Stop: 03/14/24 20:10 Last Admin: 03/14/24 20:16 Dose: 4 mg Documented By: KT Ondansetron HCl (Ondansetron 4 Mg Odt Prepack) 1 bottle MISC DIRECTED ONE Stop: 03/14/24 21:42 Last Admin: 03/14/24 21:43 Dose: 1 bottle Documented By: KT Tamsulosin HCl (Tamsulosin 0.4 Mg Capsule) 0.4 mg PO NOW ONE Stop: 03/14/24 21:53 Last Admin: 03/14/24 21:58 Dose: 0.4 mg Documented By: JUAN Vital Signs Vital signs: Vital Signs - 8 hr 03/14/24 19:14 03/14/24 19:15 03/14/24 19:15 Pulse Rate 52 L 51 L Respiratory Rate Blood Pressure 176/88 H Pulse Oximetry 100 99 03/14/24 19:30 03/14/24 19:30 03/14/24 20:00 Pulse Rate 51 L 63 Respiratory Rate Blood Pressure 170/87 H Pulse Oximetry 98 99 03/14/24 20:30 03/14/24 20:30 03/14/24 21:00 Pulse Rate 57 L 49 L Respiratory Rate 18 Blood Pressure 156/82 H Pulse Oximetry 95 94 03/14/24 21:00 03/14/24 21:30 03/14/24 21:31 Pulse Rate 60 Respiratory Rate Blood Pressure 163/83 H 151/77 H Pulse Oximetry 96 03/14/24 21:31 03/14/24 22:00 03/14/24 22:00 Pulse Rate 57 L 57 L Respiratory Rate 16 16 Blood Pressure 147/71 H Pulse Oximetry 97 99 Medical Decision Making Lab Data Lab results reviewed: Yes I reviewed the patient's lab results. 03/14/24 16:20 03/14/24 16:20 Labs: Lab Results 03/14/24 03/14/24 Range/Units 16:10 16:20 WBC 8.1 (4.5-11.0) X10^3/uL RBC 4.52 (4.0-5.2) X10^6/uL Hgb 15.4 (12.0-16.0) g/dL Hct 43.9 (36-46) % MCV 97.2 (80-100) fL MCH 34.0 (26-34) PG MCHC 35.0 (30-36) % RDW 13.9 (11.6-14.8) % Plt Count 249 (150-400) X10^3/uL Neut % (Auto) 59.0 (50-75) % Lymph % (Auto) 26.4 (25-40) % Kaufman % (Auto) 9.4 (3-14) % Eos % (Auto) 4.5 H (2-4) % Baso % (Auto) 0.7 (0-2) % Neut # (Auto) 4800 (6961-4171) /uL Lymph # (Auto) 2100 (5844-4033) /uL Kaufman # (Auto) 800 (0-900) /uL Eos # (Auto) 400 (0-450) /uL Baso # (Auto) 100 (0-100) /uL Sodium 140 (137-145) mmol/L Potassium 4.1 (3.4-5.1) mmol/L Chloride 107 (98-107) mmol/L Carbon Dioxide 26 (22-32) mmol/L BUN 21 H (7-17) mg/dL Creatinine 0.70 (0.52-1.04) mg/dL Estimated GFR > 60 (>60) mL/min BUN/Creatinine Ratio 30.0 H (6-22) Glucose 164 H (70-100) mg/dL Calcium 9.2 (8.4-10.2) mg/dL Total Bilirubin 0.5 (0.2-1.3) mg/dL AST 23 (14-36) IU/L ALT 21 (<35) IU/L Alkaline Phosphatase 101 (38-126) U/L Total Protein 7.2 (6.3-8.2) g/dL Albumin 4.4 (3.5-5.0) g/dL Globulin 2.8 (1.7-4.1) g/dL Albumin/Globulin Ratio 1.6 (1.0-2.8) Lipase 143 (23-300) U/L Ur Bilirubin Confirm Negative (Negative) Urine RBC >100/hpf H (0-5/HPF) Urine WBC 1-5/hpf (0-5/HPF) Ur Squamous Epith Cells 5-10 /hpf H (0-5/HPF) Urine Bacteria Few (2-10) H (None) Ur Culture Indicated? Specimen cultured Vol Urine Centrifuged 10ml (spun) Urine Dip Bedside Urine Glucose Negative Bedside Urine Bilirubin + 1 Bedside Urine Ketone +/- 5 Urine Specific [place] 1.030 Bedside Urine Occult Blood +++ Bedside Urine pH 6.0 Bedside Urine Protein ++ 100 Bedside Urine Urobilinogen +/- 1mg Bedside Urine Nitrite - Negative Bedside Urine Leukocytes + 70 Esterase Point of care testing: Urine Dip Bedside Urine Glucose Negative Bedside Urine Bilirubin + 1 Bedside Urine Ketone +/- 5 Urine Specific [place] 1.030 Bedside Urine Occult Blood +++ Bedside Urine pH 6.0 Bedside Urine Protein ++ 100 Bedside Urine Urobilinogen +/- 1mg Bedside Urine Nitrite - Negative Bedside Urine Leukocytes + [address] scan - abdomen/pelvis: Radiologist's Impression: PROCEDURE: CT KIDNEY URETER BLADDER (KUB) INDICATIONS: R flank pain eval for stone TECHNIQUE: Axial sections were acquired from the lung bases to the pubic symphysis. Coronal and sagittal reformats were performed. For radiation dose reduction, the following was used: automated exposure control, adjustment of mA and/or kV according to patient size. COMPARISON: [facility], CT, CT KIDNEY URETER BLADDER (KUB), 06/08/2020, 3:45. [facility], CT, KIDNEY/ URETER/BLADDER, 08/19/2015, 10:04. FINDINGS: Image quality: Diagnostic. Lower Chest: Lung bases are clear. Mild distal esophageal wall thickening. URINARY: Right Kidney/ureter: There is moderate-severe right hydroureteronephrosis secondary to an 8 mm distal right ureteral stone. Moderate perinephric and periureteral stranding. The stone measures approximately 500 Hounsfield units. Left Kidney: No stones or hydronephrosis. Left Ureter: No hydroureter. Bladder: Normal wall thickness. No stones. ABDOMEN: Liver: No contour-deforming solid mass. Gallbladder: Surgically absent Biliary ducts: No biliary dilation. Pancreas: No ductal dilation. Spleen: Size is within normal limits. Adrenal Glands: No adrenal nodules. Stomach and Bowel: Normal colonic caliber, without significant wall thickening. No evidence for small bowel obstruction or associated inflammatory changes. Peritoneum: No abnormal intraperitoneal fluid. No free air. Ventral Wall: No hernia. Abdominal Nodes: No enlarged retroperitoneal or mesenteric lymph nodes. Vessels: Aorta and inferior vena cava are normal in size. PELVIS: Pelvic Organs: Unremarkable. Pelvic Nodes: Unremarkable. Miscellaneous: No inguinal hernias are seen. Bones: Unremarkable. Visualized osseous structures appear intact without acute fracture or focal destructive lesion. No acute compression fractures of the imaged spine. IMPRESSION: Obstructing 8 mm distal right ureteral stone with moderate-severe right hydroureteronephrosis and associated perinephric/periureteral stranding. Recommend clinical/laboratory correlation for possible concurrent infectious uropathy. Mild distal esophageal circumferential wall thickening which may be related to incomplete distension versus possible esophagitis. MDM Narrative Medical decision making narrative: Urinalysis today is not consistent with a urinary tract infection. We did culture the urine. Kidney functions unremarkable. Afebrile. No leukocytosis. I did discuss the case with Dr. Arce on-call for [facility]. Recommended symptom control for now. Based on the presentation that I gave her did not feel there needs to be any emergent urologic intervention. Patient was feeling somewhat better after medications here in the ER. Plan will be is to send home with symptom treatment. I did tell her that she needed to follow-up with urology as there was a high chance she was going to need some intervention. We gave specific return precautions. She expressed understanding and agreement with plan. Discharge Plan Departure Patient Disposition: Home Clinical Impression: Kidney stone on right side Instructions: DI for Kidney Stones Activity Restrictions/Additional Instructions: Recommend that you take all of the medications as directed. Also recommend that you contact your urologist for a follow-up or the Urology Department here at this hospital for follow-up as well. Return to the emergency department for pain that is not controlled or fevers. Prescriptions: New ondansetron 4 mg tablet,disintegrating 4 mg PO Q6H PRN (Reason: nausea and vomiting) Qty: 14 0RF tamsulosin [Flomax] 0.4 mg capsule 0.4 mg PO DAILY Qty: 14 0RF ondansetron 4 mg tablet,disintegrating 4 mg PO Q6H PRN (Reason: nausea and vomiting) Qty: 14 0RF hydrocodone-acetaminophen 5-325 mg tablet 1 tab PO Q6H PRN (Reason: pain) Qty: 14 0RF No Action ondansetron 4 mg tablet,disintegrating 4 mg PO Q6H PRN (Reason: nausea and vomiting) Qty: 12 0RF tamsulosin 0.4 mg capsule 0.4 mg PO DAILY Qty: 7 0RF oxycodone-acetaminophen [Percocet] 10-325 mg tablet 1 tab PO Q6H PRN (Reason: pain) Qty: 12 0RF phenazopyridine [Pyridium] 100 mg tablet 100 mg PO TID PRN (Reason: pain) Qty: 6 0RF ondansetron 4 mg tablet,disintegrating 4 mg PO Q8H PRN (Reason: nausea and vomiting) Qty: 10 0RF sulfamethoxazole-trimethoprim 800-160 mg tablet 1 tab PO BID Qty: 14 0RF Referrals: Nneka Hinojosa PA-C [Primary Care Provider] - Stand Alone Forms: Patient Portal/API/Survey
[2024-03-14] MEDS: HYDROMORPHONE 1 MG INJ IV (20:15)
[2024-03-14] MEDS: HYDROCODONE/ACET 5/325 PREPACK 1 BOTTLE MISC (21:43)
[2024-03-14] MEDS: ONDANSETRON 4 MG ODT PREPACK 1 BOTTLE MISC (21:43)
[2024-03-14] MEDS: HYDROCODONE/ACET 5/325 TABLET 1 TAB PO (21:58)
[2024-03-14] MEDS: TAMSULOSIN 0.4 MG CAPSULE PO (21:58)
== END 2024-03-14 22:10 | disposition home or self-care (01) ==
PROVIDERS: Emergency Medicine; Emergency Provider Emergency Medicine; PCP Physician Assistant Medical
DX: N20.0 Calculus of kidney (principal); Z87.442 Personal history of urinary calculi
CPT/HCPCS: 36415; 74176; 80053; 81003; 81015; 83690; 85025; 87086; 96374; 96375; 96376; 99284; J1171; J1885; J2405